=== PATIENT | male | born 1960 | race Caucasian/White ===

== ENCOUNTER 2024-10-08 06:10 | Day surgery (SDC) | payer OTHER ==
[2024-10-07 13:48] VITALS: BP 153/90
[2024-10-07 14:04] LABS: PH,URINE 7.5 (5.0-8.0); URINE APPEARANCE Clear; URINE BILIRRUBIN Negative (NEGATIVE); URINE BLOOD Negative; URINE COLOR Yellow; URINE GLUCOSE Negative (NEGATIVE); URINE KETONE Negative (NEGATIVE); URINE LEUKOCYTE Negative; URINE NITRATE Negative; URINE PROTEIN Trace (NEGATIVE)
[2024-10-07 14:07] LABS: URINE RBC 10.7 uL (0.0-20.8); URINE WBC 2.2 uL (0.0-23.2)
[2024-10-07 14:09] LABS: BASO % 0.3 % (0.1-1.2); EOS % 1.7 % (0.7-7.0); HEMATOCRIT 41.9 % (40.1-51.0); HEMOGLOBIN 13.6 g/dL (13.7-17.5); LYMPH # 1.46 (1.18-3.74); LYMPH % 24.7 % (19.3-53.1); MONO % 10.2 % (4.7-12.5); NEUT # 3.73 (1.56-6.13); NEUT % 63.1 % (34.0-71.1); PLATELET COUNT 179 K/uL (163-369); RED BLOOD COUNT 4.54 M/uL (4.63-6.08); RED CELL DISTRIBUTION WIDTH 13.2 % (11.6-14.4)
[2024-10-07 14:25] LABS: COVID-19 AG NEGATIVE (NEGATIVE)
[2024-10-07 14:26] LABS: URINE BACTERIA 2.4 uL (0.0-1933); URINE EPITHELIAL CELLS 1.2 uL (0.0-38.8)
[2024-10-07 14:30] LABS: INR 1.01; PARTIAL THROMBOPLASTIN TIME 27.4 SECONDS (22.0-34.0)
[2024-10-07 14:31] LABS: ALBUMIN 3.7 gm/dL (3.4-5.0); BILIRUBIN TOTAL 0.42 mg/dL (0.3-1.2); CALCIUM 9.5 mg/dL (8.5-10.1); CHOL HDL RATIO 3.5 (0-5.0); CREATININE SERUM 0.78 mg/dL (0.70-1.30); GFR 99.89; GLOBULINA 3.7 G/DL (2.4-3.5); POTASSIUM 4.12 mEq/L (3.5-5.1); TOTAL PROTEIN 7.4 gm/dL (6.4-8.2)
[~2024-10-08] VITALS: Ht 172.7 cm; Wt 88.5 kg
[~2024-10-08 06:10] MED LIST: ARBLI10 MG/1 ML PO; LIPITOR20 MG PO
[2024-10-08] MEDS ORDERED: BUPIVACAINE HCL/MPF 0.5% 30ML VIAL ONE (07:48)
[2024-10-08] MEDS ORDERED: TRANEXAMIC ACID 100MG/1ML (1000MG) AMPUL IV ONE (07:49)
[2024-10-08] MEDS ORDERED: CEFAZOLIN SODIUM 1,000 MG VIAL ONE (07:49)
[2024-10-08] MEDS ORDERED: LIDOCAINE HCL 1%/EPINEPHRINE 20ML VIAL IJ ONE (07:49)
[2024-10-08] MEDS ORDERED: SUGAMMADEX SODIUM 200 MG/2 ML VIAL IV ONE (09:19)
[2024-10-08] MEDS ORDERED: ALEVE220 M1 PO (10:08)
[2024-10-08] MEDS ORDERED: PERCOCET 5-3251 EACH PO (10:08)
[2024-10-08] MEDS ORDERED: DUI500 PO (10:08)
[2024-10-08] MEDS ORDERED: MORPHINE SULFATE 4 MG/ML VIAL IV ONE ×2 (10:50→11:15)
[2024-10-08] MEDS ORDERED: ENALAPRILAT DIHYDRATE 1.25 MG/ML VIAL IV ONE ×3 (11:38→14:15)
[2024-10-08] MEDS ORDERED: hydrALAZINE HCL 20 MG VIAL ONE (12:29)
== END 2024-10-08 14:05 | disposition home or self-care (01) ==
LOC: CIR.AMB 06:10
PROVIDERS: ATTEND Orthopaedic Surgery
DX: S52.532A Colles' fracture of left radius, initial encounter for closed fracture (principal); M25.532 Pain in left wrist
CPT/HCPCS: 25609; 20902; 25101; L8699